=== PATIENT | female | born 1990 | race Caucasian/White ===

== ENCOUNTER 2017-05-17 10:29 | Emergency (ER) | payer MEDICAID, OTHER ==
[~2017-05-17] VITALS: Ht 147.3 cm; Wt 46.0 kg
[~2017-05-17 10:29] MED LIST: PREN1TAB13 PO
[2017-05-17 10:32] VITALS: Ht 147.3 cm; Wt 46.0 kg
[2017-05-17] MEDS ORDERED: IBUPROFEN 600 MG TAB PO ONE (13:00)
[2017-05-17] MEDS ORDERED: HYDROCODONE/APAP (5/325) TAB PO ONE (13:00)
--- NOTE | 2017-05-17 14:01 | ERD ---
ER Documentation Chief Complaint Chief Complaint pt bib family with c/o back pain starting yesterday, no cause HPI This is a 27-year-old female presents to the ER complaining of lower back pain that started yesterday. Patient has had 3 falls in the past, believes that this caused her pain. Her falls about 6 years ago. Patient states that movement makes her back pain worse. It is nonradiating, she denies any numbness , tingling, weakness of her lower extremities. She denies any urinary bowel incontinence. She denies any saddle like anesthesia. She does not have any fevers or chills. ROS 12 point review of systems was done, all negative except per HPI. Medications Home Meds Active Scripts Docusate Sodium* (Colace*) 100 Mg Capsule, 100 MG PO TID, #30 CAP Prov:KINGSLEY WEISS 05/17/17 Ibuprofen* (Motrin*) 600 Mg Tab, 600 MG PO Q6, #30 TAB Prov:KINGSLEY WEISS 05/17/17 Hydrocodone/Acetaminophen (Beaman 5-325 Tablet) 1 Each Tablet, 1 TAB PO Q6H Y for PAIN, #20 TAB Prov:KINGSLEY WEISS 05/17/17 Reported Medications Vit-Iron Fumarate-FA ( Vitamins Tablet) 1 Tab Tablet, 1 TAB PO DAILY, TAB 07/06/14 Allergies Allergies: Coded Allergies: No Known Drug Allergy (Verified Allergy, Unknown, 07/06/14) PMhx/Soc Medical and Surgical Hx: pt denies Medical Hx, pt denies Surgical Hx History of Surgery: No Anesthesia Reaction: No Hx Neurological Disorder: No Hx Respiratory Disorders: No Hx Cardiac Disorders: No Hx Psychiatric Problems: No Hx Miscellaneous Medical Probl: No Hx Alcohol Use: No Hx Substance Use: No Hx Tobacco Use: No Smoking Status: Never smoker Physical Exam Vitals Vital Signs Date Time Temp Pulse Resp B/P Pulse Ox O2 Delivery O2 Flow Rate FiO2 05/17/17 10:32 97.3 76 16 133/82 98 Physical Exam GENERAL: The patient is well developed and appropriate for usual state of health , in no apparent distress. NECK: C-spine is soft and supple. There is no cervical lymphadenopathy. CHEST: Clear to auscultation bilaterally. There are no rales, wheezes or rhonchi. HEART: Regular rate and rhythm. No murmurs, clicks, rubs or gallops. BACK: No midline or flank tenderness. Tender to palpation from L3-L5 from S1 through S3. Tense paraspinal muscles. Negative leg raise test. No step- offs. no Foot drop. EXTREMITIES: Equal pulses bilaterally. There is no peripheral clubbing, cyanosis or edema. No focal swelling or erythema. Full range of motion. Grossly neurovascularly intact. NEURO: Alert and oriented. Cranial nerves II through XII are intact. Results 24 hrs Current Medications Medications (Trade) Dose Ordered Sig/Tatyana Route PRN Reason Start Time Stop Time Status Last Admin Dose Admin Acetaminophen/ Hydrocodone Bitart (Beaman (5/325)) 1 tab ONCE ONCE PO 05/17/17 13:00 05/17/17 13:01 DC 05/17/17 12:47 Ibuprofen (Motrin) 600 mg ONCE ONCE PO 05/17/17 13:00 05/17/17 13:01 DC 05/17/17 12:46 Procedures/MDM Differential Diagnosis includes but is not limited to back strain, vertebral fracture, epidural abscess, cauda equina, herniated disc, AAA rupture, kidney stones, UTI, pyelonephritis. Does have a coccyx fracture, sent home with Beaman and ibuprofen. She will also be given stool softeners to avoid constipation from Beaman and pain secondary to constipation. Has full and nonpainful range of motion of her lower extremities and is neurovascularly intact. Suspicion for cauda equina, epidural abscess is low. Patient is afebrile and extremely well-appearing. Patient is to follow-up with her primary care doctor within 1- 2 days return to ER sooner if symptoms worsen. My medical decision making sure with the patient she understands and agrees with plan. Departure Diagnosis: Primary Impression: Closed fracture of coccyx Condition: Stable KINGSLEY WEISS May 17, 2017 14:01
--- NOTE | 2017-05-17 14:47 | RADRPT ---
PROCEDURE: XR Lumbar Spine. CLINICAL INDICATION: Back pain. TECHNIQUE: 2 views. Frontal and lateral. COMPARISON: No prior studies are available for comparison. FINDINGS: There is normal stature and alignment of the vertebrae. There is no fracture. There is no lytic or blastic lesion. The disk height is normal. The paravertebral soft tissues are unremarkable. IMPRESSION: 1. Unremarkable images of the lumbar spine. RPTAT: QQ .Barry Jimenez MD, MD Date Time Electronically viewed and signed by .Barry Jimenez MD, MD on 05/17/2017 14:47 .R/
--- NOTE | 2017-05-17 14:50 | RADRPT ---
PROCEDURE: XR Sacrum and Coccyx CLINICAL INDICATION: Neck pain TECHNIQUE: AP inlet and outlet views and a lateral view were submitted. COMPARISON: None FINDINGS: Osseous structures: There is acute anterior angulation of the coccyx suspicious for a fracture. The sacrum appears intact as do the remaining visualized osseous elements. Joint spaces: the sacroiliac joints appear unremarkable without significant erosions or sclerosis. Soft tissues: appear unremarkable. IMPRESSION: 1. Acute anterior angulation at the coccyx suspicious for a fracture. 2. The sacrum, iliac bones and other visualized osseous elements appear intact.. Physician Josh Date Time Electronically viewed and signed by Physician Josh on 05/17/2017 14:50 /
[2017-05-17] MEDS ORDERED: IBUP-1542 PO (14:57)
[2017-05-17] MEDS ORDERED: HYDR-906 PO (14:57)
[2017-05-17] MEDS ORDERED: DOCU-144 PO (15:02)
== END 2017-05-17 15:24 | disposition home or self-care (01) ==
LOC: FTE 10:29
DX: S32.2XXA Fracture of coccyx, initial encounter for closed fracture (principal); X58.XXXA Exposure to other specified factors, initial encounter; Y92.9 Unspecified place or not applicable
CPT/HCPCS: 72100; 72220; Z7502; Z7610